=== PATIENT | male | born 2000 | race Caucasian/White ===

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

== ENCOUNTER 2023-03-05 21:23 | Emergency (ER) | payer OTHER ==
[~2023-03-05] VITALS: Ht 165.1 cm; Wt 54.4 kg
[2023-03-05 21:49] VITALS: BP 120/74
--- NOTE | 2023-03-05 22:29 | NUR ---
Gustavo pulido in [facility] - 03/05/23 at 2230 by SHAYY PT TAKEN TO BED 5
--- NOTE | 2023-03-05 23:43 | NUR ---
Dr. Cody examining patient.
[2023-03-05] MEDS ORDERED: IBUPROFEN 600 MG TAB PO ONE (23:50)
--- NOTE | 2023-03-05 23:54 | NUR ---
Patient taken to X-ray via WC.
[2023-03-06] MEDS ORDERED: NAPR-54 PO (01:11)
[2023-03-06 01:21] VITALS: BP 120/74
--- NOTE | 2023-03-06 01:21 | NUR ---
D/C BY DR.KWAW SHIKHA MENDOZA
== END 2023-03-06 01:21 | disposition home or self-care (01) ==
LOC: MED 21:23
DX: S13.4XXA Sprain of ligaments of cervical spine, initial encounter (principal); S20.212A Contusion of left front wall of thorax, initial encounter; Z79.899 Other long term (current) drug therapy; V49.88XA Car occupant (driver) (passenger) injured in other specified transport accidents, initial encounter; Y93.89 Activity, other specified; Y92.89 Other specified places as the place of occurrence of the external cause; Y99.8 Other external cause status
CPT/HCPCS: 71045; 72040; 99284

== ENCOUNTER 2023-10-06 15:30 | Emergency (ER) | payer OTHER ==
[~2023-10-06] VITALS: Ht 165.1 cm; Wt 55.3 kg
[~2023-10-06 15:30] MED LIST: NAPR-54 PO
[2023-10-06 15:43] VITALS: BP 114/74; PULSE 63; RESP 20; TEMP 98.3; O2SAT 100
[2023-10-06] MEDS ORDERED: IBUP-1842 PO (17:16)
[2023-10-06 17:19] VITALS: BP 110/68; PULSE 63; RESP 20; TEMP 98.3; O2SAT 100
== END 2023-10-06 17:22 | disposition home or self-care (01) ==
LOC: MED 15:30
DX: M79.642 Pain in left hand (principal); R22.32 Localized swelling, mass and lump, left upper limb; Z79.1 Long term (current) use of non-steroidal anti-inflammatories (NSAID)
CPT/HCPCS: 73130; 99283